=== PATIENT | male | born 1990 | race Caucasian/White ===

== ENCOUNTER 2019-05-30 20:50 | Emergency (ER) | payer MEDICAID ==
--- NOTE | 2019-05-30 21:15 | NUR ---
Patient pulled into triage for assessment. Patient complains of bilateral foot infection for, "months." He refuses to remove his shoes to examine them to determine his acuity level. He states, "I'll just make an appointment. I don't feel like waiting 3 hours for this." I explained to the patient that we don't offer appointments and that I could get a provider to quickly see him but he declines. Patient leaves before triage.
[2019-05-31] MEDS ORDERED: NYST15PO4 TOP (02:39)
== END 2019-05-30 21:18 | disposition left against medical advice (07) ==
LOC: ER 20:52
DX: M79.671 Pain in right foot (principal); M79.672 Pain in left foot; Z53.21 Procedure and treatment not carried out due to patient leaving prior to being seen by health care provider

== ENCOUNTER 2019-05-31 01:39 | Emergency (ER) | payer MEDICAID ==
[~2019-05-31] VITALS: Ht 180.3 cm; Wt 86.3 kg
[2019-05-31] MEDS ORDERED: NYST15PO4 TOP (02:39)
[2019-05-31 02:56] VITALS: BP 130/76
== END 2019-05-31 02:58 | disposition home or self-care (01) ==
LOC: ER 01:42
DX: B35.3 Tinea pedis (principal); R61 Generalized hyperhidrosis; F17.200 Nicotine dependence, unspecified, uncomplicated; F11.90 Opioid use, unspecified, uncomplicated; F10.99 Alcohol use, unspecified with unspecified alcohol-induced disorder; Z59.0 Homelessness; Z79.899 Other long term (current) drug therapy; Y90.9 Presence of alcohol in blood, level not specified
CPT/HCPCS: 99283